=== PATIENT | male | born 2000 | race African-American/Black ===

== ENCOUNTER 2021-03-13 09:47 | Emergency (ER) | payer MEDICAID, SELFPAY ==
[~2021-03-13] VITALS: Ht 177.8 cm; Wt 74.8 kg
--- NOTE | 2021-03-13 09:50 | NUR ---
Patient to ER bed 6 to gown for evaluation. Side rails up. Report given to LAUREANO PILLAI.
--- NOTE | 2021-03-13 09:55 | NUR ---
ER at bedside examining patient.
[2021-03-13 09:57] VITALS: BP_SYST 115
[2021-03-13] MEDS ORDERED: LORazepam 1 MG TABLET PO ONE (10:00)
[2021-03-13] MEDS ORDERED: levETIRAcetam 500 MG TABLET PO ONE (10:00)
[2021-03-13] MEDS ORDERED: ONDANSETRON 4 MG ODT TAB PO ONE (10:00)
--- NOTE | 2021-03-13 10:10 | NUR ---
spoke with pts. aunt who confimed the family that pt. lives with has Covid, pt. states has had a productive cough and MONTES for few days, will notify Dr. Watson and request covid test
--- NOTE | 2021-03-13 10:30 | NUR ---
Pt. bib ACLS post seizure,assessment done pt. is alert, c/o abd. pain, has N/V, IV placed for blood draw and to medicate, pt. unable to take po meds d/t nausea
[2021-03-13] MEDS ORDERED: levETIRAcetam 1,000 MG IV BAG 100 ML IV ONE (10:45)
[2021-03-13] MEDS ORDERED: ONDANSETRON HCL 4 MG/2 ML VIAL IVP ONE (10:45)
--- NOTE | 2021-03-13 11:11 | NUR ---
called pharmacy for Jesus
[2021-03-13 11:57] LABS: CREATININE 1.12 mg/dL (0.55-1.30); POTASSIUM 4.4 mmol/L (3.5-5.1)
[2021-03-13] MEDS ORDERED: LEVE500T9 PO (11:57)
[2021-03-13 12:03] LABS: ALBUMIN 3.7 g/dL (3.4-4.8); TOTAL BILIRUBIN 0.4 mg/dL (0.0-1.0)
[2021-03-13 12:09] LABS: BASOPHILS % (AUTO) 0.4 % (0.0-2.0); EOSINOPHILS # (AUTO) 0.1 K/uL (0.0-0.4); EOSINOPHILS % (AUTO) 1.6 % (0.0-4.0); HEMATOCRIT 47.1 % (36-54); HEMOGLOBIN 15.6 g/dL (14.0-18.0); LYMPHOCYTES # (AUTO) 0.8 K/uL (1.0-5.5); LYMPHOCYTES % (AUTO) 18.1 % (20.5-51.5); MEAN CORPUSCULAR HEMOGLOBIN 29 pg (27-31); MEAN CORPUSCULAR HGB CONC 33 % (32-36); MEAN CORPUSCULAR VOLUME 87 fL (79.0-98.0); MONOCYTES # (AUTO) 0.5 K/uL (0.0-1.0); MONOCYTES % (AUTO) 11.5 % (1.7-9.3); NEUTROPHILS # (AUTO) 2.9 K/uL (1.8-7.7); NEUTROPHILS % (AUTO) 68.4 % (40.0-70.0); RED BLOOD CELL COUNT(AUTO) 5.43 MIL/uL (4.2-6.2); RED CELL DISTRIBUTION WIDTH 12.6 % (9.0-15.0); WHITE BLOOD COUNT (AUTO) 4.3 K/uL (4.8-10.8)
[2021-03-13 12:32] LABS: PLATELET COUNT (AUTO) 85 K/uL (130-430)
--- NOTE | 2021-03-13 13:39 | NUR ---
pt. sleeping but arousable
--- NOTE | 2021-03-13 15:05 | NUR ---
phone update to pts. mom Sophie, pts. step mom will be picking him up Janet [phone]
--- NOTE | 2021-03-13 15:13 | NUR ---
ER at bedside examining patient.
--- NOTE | 2021-03-13 16:05 | NUR ---
family here, SL out pt. changing clothes
[2021-03-13 16:11] VITALS: BP_SYST 129
--- NOTE | 2021-03-13 16:12 | NUR ---
Patient given written and verbal discharge instructions and verbalizes understanding. ER Dr. Narvaez discussed with patient the results and treatment provided. Patient in stable condition. ID arm band removed. IV catheter removed intact and dressing applied, no active bleeding. Patient educated on pain management and to follow up with PMD. Pain Scale 0. Opportunity for questions provided and answered.
== END 2021-03-13 16:12 | disposition home or self-care (01) ==
LOC: SED 09:47
DX: R56.9 Unspecified convulsions (principal); Z20.822 Contact with and (suspected) exposure to COVID-19; Z79.899 Other long term (current) drug therapy
CPT/HCPCS: 36415; 80053; 83605; 85025; 87426; 96365; 96375; 99284; J1953; J2405; Q0162